=== PATIENT | female | born 1990 | race Caucasian/White ===

== ENCOUNTER 2024-11-21 11:02 | Emergency (ER) | payer OTHER, SELFPAY ==
[2024-11-21 11:07] VITALS: BP 170/118
[2024-11-21 11:46] VITALS: BMI 33.5
--- NOTE | 2024-11-21 11:46 | ED.GENMED ---
History of Present Illness
General
Chief Complaint: Abdominal Symptoms
Source: patient
Time Seen by Provider: 11/21/24 11:30
History of Present Illness
History of Present Illness:
33-year-old female with past medical history of melanoma (currently not undergoing any treatments) presenting to the emergency department for evaluation of nausea and vomiting that started this past Thursday after she initiated a GLP-1 medication
which she had been using for weight loss, accidentally took more units than she should have, today noticed yellowing of the sclera and worsening pain across her upper abdomen radiating into her right upper back/scapular area. Patient states that
the pain is tolerable but she has been unable to tolerate much other than intermittent sips of water. Denies any fevers, chills, rigors. Denies any history of similar. No other concerns at present time. Patient reports she just finished her
menstrual period yesterday. Social history otherwise noncontributory.
Past History
Past History
ED Past Medical History: Cancer
ED Past Surgical History:
Social History
Tobacco: Non-smoker
Alcohol: Occasional
Drug: None
Personal:
Living: with family
Review of Systems
Review of Systems
All Other Systems: ROS reviewed and negative except as documented in HPI and ROS
Phy Exam
Physical Exam
Physical Exam:
GENERAL: Alert , in no apparent distress
EYE: Mildly icteric sclera on the anterior portion of the sclera
HEAD: NCAT
ENT: o/p clr, mmm.
CARDIAC: Regular rate and rhythm, no murmur.
LUNGS: Clear breath sounds bilaterally, no acute respiratory distress, no wheezes/rales/rhonchi
ABDOMEN: Soft, upper abdominal tenderness worse within the epigastrium and right upper quadrant but a negative Lane sign, no distention
NEUROLOGICAL: Alert and oriented
SKIN: Warm and dry, skin intact.
MUSCULOSKELETAL: No edema, well perfused.
PSYCH: Normal and appropriate interaction.
Scores
Heart Failure Risk
Heart Failure Risk Score: Not Applicable
Heart Score for Chest Pain Patients
STEMI patient?: Not applicable
Withdrawal Assessment of Alcohol
Withdrawal Assessment Completed?: Not applicable
Course
Orders/Labs/Results
Orders:
Orders
11/21/24 11:36
0.9% Sodium Chloride 1000 ml [Nss] 1,000 ml IV BOLUS
Ondansetron Injectable [Zofran] 4 mg IV NOW STA
US Abdomen Complete/Upper Urgent
Comment:
Reason For Exam: N/V, upper abd pain, icteric sclera
11/21/24 11:37
Test Result ONCE
11/21/24 11:47
Complete Blood Count/With Diff Urgent
Comprehensive Metabolic Panel Urgent
HCG, Serum Qualitative Screen Urgent
Lipase Urgent
PTT Urgent
Prothrombin Time Urgent
11/21/24 12:51
Urinalysis Reflex To Culture Urgent
Date Specimen was Collected: 11/21/24
Time Specimen was Collected: 12:49
Urine Microscopic Reflex Cult Urgent
Abnormal Lab Results
11/21/24 11/21/24
11:47 12:51
Hgb 7.4 L g/dL
(12.0-16.0)
Hct 27.2 L %
(37.0-47.0)
MCV 60.7 L fL
(81.0-99.0)
MCH 16.5 L pg
(27.0-31.0)
MCHC 27.2 L g/dL
(33.0-37.0)
RDW 20.9 H %
(11.5-14.5)
PT 15.2 H Sec
(11.4-14.6)
Creatinine 0.5 L mg/dL
(0.6-1.0)
Lipase 375 H U/L
(23-300)
Urine Ketones 3+ A
(Negative)
Ur Occult Blood Reflex 1+ A
(Negative)
Urine RBC 3-6 A /HPF
(0-2)
Urine Bacteria (Reflex) Few A
(Negative)
11/21/24 11:47
11/21/24 11:47
Vital Signs
Initial and Last Documented VS:
Initial Vital Signs
Temp Pulse Resp BP Pulse Ox
98.4 F 97 20 170/118 100
11/21/24 11:07 11/21/24 11:07 11/21/24 11:07 11/21/24 11:07 11/21/24 11:07
Last Documented Vital Signs
Temp Pulse Resp BP Pulse Ox
98.4 F 72 18 124/71 99
11/21/24 11:07 11/21/24 14:44 11/21/24 14:44 11/21/24 14:44 11/21/24 14:44
MDM/Problems Addressed
Differential Diagnosis Includes:
Complications from GLP-1, pancreatitis, cholecystitis/choledocholithiasis/symptomatic cholelithiasis, colitis, appendicitis
MDM/Problems Addressed:
33-year-old female presenting to the ER for evaluation of nausea and vomiting since Thursday after starting a GLP-1 medication that same day. Patient states she accidentally took a little bit too much of the medication as part of her first dose.
She does have tenderness within the right upper quadrant that radiates to her right upper back, question pancreatitis versus cholecystitis/choledocholithiasis. She does have mild icteric sclera. Will check labs as well as ultrasound of the
gallbladder. Patient declining anything for pain. Will order Zofran and fluids. Disposition pending.
*Radiology
Radiology exam reviewed: radiology read reviewed
*Pulse Oximetry
Patient hypoxic: no
*Critical Care Note
Total Time (30-74mins, 75-104mins- exclusive of procedures): Not Applicable
Comment
Comment:
Patient's labs show a hemoglobin of 7.4. No record of previous labs here although I suspect this is likely related to patient's recent menstrual period lipase also mildly elevated at 375. This is likely due to patient's recent use of the GLP-1
medication. She notes relief with Zofran. Still with mild abdominal pain as well as reporting a very mild headache. Continues to decline anything for pain. Awaiting ultrasound report.
Patient Management
Escalation/DeEscalation of care consider admission/obs:
Patient advised on all lab findings. Ultrasound does show a small gallstone within the gallbladder but no evidence of cholecystitis. Given the duration of patient's symptoms combined with normal LFTs I doubt cholecystitis, choledocholithiasis or
symptomatic cholelithiasis. I suspect patient's symptoms are all driven by the initiation of her GLP-1 medication. Advised brat/liquid diet. Prescription for Zofran sent to pharmacy. I encourage patient follow-up closely for repeat hemoglobin
given her anemia of 7.4. Patient aware of return precautions to the ER.
ED Attending Note
-
Portions of this chart may have been created with voice recognition software.� Occasional wrong word or��sound alike� substitutions may have occurred due to the inherent limitations of voice recognition software.
Discharge Plan
Departure
Patient Disposition: Home (Routine Discharge)
Date of Disposition: 11/21/24
Time of Disposition: 14:29
Patient with high blood pressure during this ER visit?: No
Discharge Problem:
Abdominal pain, Nausea and vomiting, Anemia
Instructions: Nausea and Vomiting, Adult (DC)
Prescriptions:
New
ondansetron 4 mg tablet,disintegrating
4 mg PO TIDPRN PRN (Reason: nausea/vomiting) Qty: 10 0RF
Referrals:
NONE,* [Family Provider] -
Interventions
Interventions:
*Risk Screen - Suicide Last Done: 11/21/24 11:07
*General Assessment Last Done: 11/21/24 11:07
*Neglect/Abuse Screening Last Done: 11/21/24 11:10
*ED- Fall Risk Assessment Last Done: 11/21/24 12:16
*ED COVID-19 Vaccine History Last Done: 11/21/24 12:16
*Nursing Disposition Last Done: 11/21/24 14:44
RL-Uafbuq-Wcfdhfjyhi Assessment Last Done: 11/21/24 14:28
Discharge Date and Time
Discharge Date/Time: 11/21/24 14:45
Print Language: ARGENTINE
[2024-11-21] MEDS: ZOFRAN 4 MG IV (11:48)
[2024-11-21] MEDS: NSS 1000 IV (11:48)
[2024-11-21 12:03] VITALS: BP 120/91
[2024-11-21 12:19] LABS: Hematocrit 27.2 % (37.0-47.0); Hemoglobin 7.4 g/dL (12.0-16.0); Mean Corp Hgb Conc. 27.2 g/dL (33.0-37.0); Mean Corpuscular Hgb 16.5 pg (27.0-31.0); Mean Corpuscular Volume 60.7 fL (81.0-99.0); Mean Platelet Volume 9.4 fL (7.4-10.4); Platelet Count 292 10^3/uL (130-400); Red Blood Cell Count 4.48 10^6/uL (4.20-5.40); Red Cell Dist. Width 20.9 % (11.5-14.5)
[2024-11-21 12:21] LABS: ALT (SGPT) 27 U/L (0-35); AST (SGOT) 19 U/L (14-36); Albumin 4.3 g/dl (3.5-5.0); Alkaline Phosphatase 56 U/L (38-126); Blood Urea Nitrogen 8 mg/dl (7-17); Calcium 9.4 mg/dl (8.4-10.2); Carbon Dioxide 22 mmol/L (22-30); Chloride 104 mmol/L (98-107); Estimated Creatinine Clearance > 125 ml/min; Glucose 83 mg/dl (70-99); Lipase 375 U/L (23-300); Potassium 3.5 mmol/L (3.5-5.1); Sodium 138 mmol/L (135-145); Total Bilirubin 0.9 mg/dl (0.2-1.3); Total Protein 7.2 g/dl (6.3-8.2); eGFR > 60.00
[2024-11-21 12:23] LABS: INR 1.17; PT 15.2 Sec (11.4-14.6)
[2024-11-21 12:24] LABS: APTT 29.5 Sec (23.4-35.0)
[2024-11-21 12:31] LABS: HCG, Serum Qualitative Screen Negative
[2024-11-21 13:02] LABS: Urine Albumin Negative (Neg - Trace); Urine Bilirubin Negative (Negative); Urine Character Clear (Clear); Urine Color Yellow; Urine Glucose Negative (Negative); Urine Ketone 3+ (Negative); Urine Leukocyte Negative (Negative); Urine Nitrite Negative (Negative); Urine Occult Blood 1+ (Negative); Urine Urobilinogen Negative (Neg - 1+)
[2024-11-21 13:23] LABS: Urine Bacteria Few (Negative); Urine White Cell 0-2 /HPF (0-5)
[2024-11-21 13:30] LABS: % Basophils 0.4 % (0-2); % Eosinophils 0.4 % (0-6); % Immature Granulocytes 0.2 % (0-0.5); % Lymphocytes 35.6 % (20.5-51.1); % Monocytes 5.6 % (1.7-9.3); % Neutrophils 57.8 % (42.2-75.2); Absolute Lymphocytes 1.8 10^3/uL (1.2-3.4); Absolute Monocytes 0.3 10^3/uL (0.1-0.6); Absolute Neutrophils 2.9 10^3/uL (1.4-6.5); Nucleated Red Blood Cells % 0 %
[2024-11-21 14:44] VITALS: BP 124/71
== END 2024-11-21 14:45 | disposition home or self-care (01) ==
LOC: EMR 11:02
PROVIDERS: Physician Assistant Medical; EMERGENCY PHYSICIAN Emergency Medicine
DX: R10.10 Upper abdominal pain, unspecified (principal); R11.2 Nausea with vomiting, unspecified; D64.9 Anemia, unspecified; Z85.820 Personal history of malignant melanoma of skin
CPT/HCPCS: 99284; 96374; 96361; 76700; 80053; 81003; 81015; 83690; 84703; 85025; 85610; 85730

== ENCOUNTER 2024-11-25 22:48 | Inpatient (IN) | payer OTHER, SELFPAY ==
[2024-11-25 14:13] VITALS: BP 143/90
[2024-11-25 14:42] LABS: Hemoglobin 7.8 g/dL (12.0-16.0); Mean Corp Hgb Conc. 26.9 g/dL (33.0-37.0); Mean Corpuscular Hgb 16.3 pg (27.0-31.0); Mean Corpuscular Volume 60.5 fL (81.0-99.0); Mean Platelet Volume 9.3 fL (7.4-10.4); Platelet Count 321 10^3/uL (130-400); Red Blood Cell Count 4.79 10^6/uL (4.20-5.40); Red Cell Dist. Width 20.8 % (11.5-14.5); White Blood Cell Count 6.2 10^3/uL (4.8-10.8)
[2024-11-25 14:47] LABS: HCG, Serum Qualitative Screen Negative
[2024-11-25 14:51] LABS: ALT (SGPT) 22 U/L (0-35); AST (SGOT) 19 U/L (14-36); Albumin 4.4 g/dl (3.5-5.0); Alkaline Phosphatase 48 U/L (38-126); Blood Urea Nitrogen 4 mg/dl (7-17); Calcium 9.7 mg/dl (8.4-10.2); Carbon Dioxide 24 mmol/L (22-30); Chloride 104 mmol/L (98-107); Glucose 86 mg/dl (70-99); Lipase 753 U/L (23-300); Sodium 140 mmol/L (135-145); Total Protein 7.2 g/dl (6.3-8.2); eGFR > 60.00
[2024-11-25 15:15] LABS: % Basophils 0.5 % (0-2); % Eosinophils 0.6 % (0-6); % Immature Granulocytes 0.2 % (0-0.5); % Lymphocytes 29.9 % (20.5-51.1); % Monocytes 5.3 % (1.7-9.3); % Neutrophils 63.5 % (42.2-75.2); Absolute Lymphocytes 1.9 10^3/uL (1.2-3.4); Absolute Monocytes 0.3 10^3/uL (0.1-0.6); Nucleated Red Blood Cells % 0 %
[2024-11-25 17:22] VITALS: BMI 32.7
[2024-11-25 17:23] VITALS: BP 138/89
[2024-11-25 18:00] VITALS: BP 135/100
--- NOTE | 2024-11-25 18:19 | ED.GENMED ---
History of Present Illness
General
Chief Complaint: Abdominal Pain
Source: patient
Exam Limitations: none
Time Seen by Provider: 11/25/24 17:32
History of Present Illness
History of Present Illness:
33yoF with a prior history of melanoma presenting for evaluation of abdominal pain. Patient took a higher dose of semaglutide about 10 days ago. She was supposed to take 10 units but accidentally took 70 units. She started to have nausea and
vomiting 2 days later. She also developed abdominal pain. Pain was initially present in her lower abdomen. She was seen in the ED 4 days ago for the same. Lipase was mildly elevated and cholelithiasis was seen on ultrasound. Patient was
ultimately discharged. She reports continued pain since discharge. Pain is now radiating upwards to the right upper quadrant, back, and up to the shoulder. Pain is worse with eating and she has not eaten anything in the past 2 days. She is able
to drink fluids. She reports nausea but denies any further vomiting. She is also having some loose stools. No fevers, chest pain, shortness of breath. Previous abdominal surgeries include section x 3.
Past History
Past History
ED Past Medical History: Cancer
ED Past Surgical History:
Social History
Tobacco: Non-smoker
Alcohol: Occasional
Drug: None
Personal:
Living: with family
Phy Exam
General Physical Exam
General Presentation: well appearing and no apparent distress
General age: appears stated age
General Skin: warm and dry
General Habitus: normal
General Mental: alert
ENT Exam
ENT Exam: normocephalic
Cardiovascular Exam
Cardiovascular Exam: regular rate/rhythm and no murmur
Pulmonary Exam
Pulmonary Exam: lungs clear, no respiratory distress, no rales, no crackles and no rhonchi
Gastrointestinal Exam
Gastrointestinal Exam: soft, non distended and other (+Generalized abdominal tenderness. Abdomen soft, non-distended. No rebound or guarding.)
Neurological Exam
Neurological Exam: alert
[place] Coma Scale
Eye Opening: Spontaneous
Verbal Response: Oriented
Motor Response: Obeys Commands
GCS Total Score: 15
Musculoskeletal Exam
Musculoskeletal Exam: full ROM and neck pain
Psychiatric Exam
Psychiatric Exam: anxious
Course
Orders/Labs/Results
Orders:
Orders
11/25/24 14:24
Test Result ONCE
11/25/24 14:30
Complete Blood Count/With Diff Urgent
Comprehensive Metabolic Panel Urgent
Ferritin Urgent
Comment: ADD ON
Folate Urgent
Comment: ADD ON
HCG, Serum Qualitative Screen Urgent
Iron Urgent
Comment: ADD ON
Lipase Urgent
Total Iron Binding Urgent
Comment: ADD ON
11/25/24 18:00
CT Abd/pelvis W Iv Cont Urgent
Comment:
Reason For Exam: lower abd pain, RUQ, elevated lipase
11/25/24 18:09
0.9% Sodium Chloride 1000 ml [Nss] 1,000 ml IV BOLUS
HYDROmorphone [Dilaudid] 0.5 mg IV NOW STA
Ondansetron Injectable [Zofran] 4 mg IV NOW STA
11/25/24 20:02
HYDROmorphone [Dilaudid] 0.5 mg IV NOW STA
11/25/24 21:49
Add On- LAB Urgent
Tests Added?: iron, tibc, ferritin, folate
11/25/24 22:36
Admit/Transfer Patient As Directed
Co-Sign Provider:
Level of Care: Inpatient admission
Assign to:: Medical/Surgical
Physician / Group: alyssa quezada
Diagnosis: Acute pancreatitis secondary to accidental overdose Ozempic
Reason for Hospitalization: Acute pancreatitis secondary to accidental overdose Ozempic
Expected length of stay greater than two midnights?: Yes
ELOS- Estimated Length of Stay in days: 3
I certify the patient meets the requirements for IP care: Yes
Code Status As Directed
Resuscitation Status: Full Code
11/25/24 22:41
PRN Pain Medication Management As Directed
May give lesser potent ordered pain med per pt: Yes
preference::
Protocol:: Medication orders for pain may be administered in a
manner that supports deferring to patient preference
when the pt is:
- Requesting an ordered lesser potent pain medication.
Least to most potent pain medications are defined
as: acetaminophen < NSAID < tramadol < opioids
(morphine, oxycodone, hydromorphone).
- Requesting a lesser dose of the same medication IF
ORDERED.
- Requesting a less intrusive route of administration
if both routes are prescribed by the provider (PO <
IV).
Abnormal Lab Results
11/25/24
14:30
Hgb 7.8 L g/dL
(12.0-16.0)
Hct 29.0 L %
(37.0-47.0)
MCV 60.5 L fL
(81.0-99.0)
MCH 16.3 L pg
(27.0-31.0)
MCHC 26.9 L g/dL
(33.0-37.0)
RDW 20.8 H %
(11.5-14.5)
BUN 4 L mg/dl
(7-17)
Creatinine 0.5 L mg/dL
(0.6-1.0)
Iron 27 L ug/dl
(37-170)
% Saturation 6 L %
(20-50)
Lipase 753 H U/L
(23-300)
11/25/24 14:30
11/25/24 14:30
Vital Signs
Initial and Last Documented VS:
Initial Vital Signs
Temp Pulse Resp BP Pulse Ox
98.9 F 90 18 143/90 98
11/25/24 14:13 11/25/24 14:13 11/25/24 14:13 11/25/24 14:13 11/25/24 14:13
Last Documented Vital Signs
Temp Pulse Resp BP Pulse Ox
98.9 F 90 18 138/89 100
11/25/24 14:13 11/25/24 14:13 11/25/24 14:13 11/25/24 17:23 11/25/24 17:24
MDM/Problems Addressed
Differential Diagnosis Includes:
33yoF here with ongoing abd pain and pain with eating. Started a few days after taking excess semaglutide dose. Seen in ED 4 days ago for the same. VSS. Patient is nontoxic-appearing. There is no signs of peritonitis on abdominal exam.
Differential diagnosis includes but is not limited to: Biliary colic, cholecystitis, pancreatitis, gastritis, PUD, side effect of semaglutide, nonspecific abdominal pain
Initial ED plan: Abdominal labs obtained in triage. Lipase is 753 which has increased from prior ED visit. LFTs including bilirubin are normal. Hemoglobin 7.8 which appears improved compared to earlier this week. Patient does report a known
history of anemia and has been told in the past that she was 'close to a blood transfusion' although does not take any iron supplementation and has never been told the etiology of her anemia. Will check CT abdomen. IV Dilaudid, Zofran, and fluid
bolus for symptoms.
*Critical Care Note
Total Time (30-74mins, 75-104mins- exclusive of procedures): Not Applicable
Update Note
Update Note:
CT abdomen is negative for acute findings. There is no imaging evidence of pancreatitis. Lipase is less than 3x upper limit of normal so she does not fully meet diagnostic criteria for pancreatitis. Patient tearful on reassessment and states she
does not feel comfortable going home. Second dose of Dilaudid ordered and patient admitted for further management.
ED Attending Note
-
Portions of this chart may have been created with voice recognition software.� Occasional wrong word or��sound alike� substitutions may have occurred due to the inherent limitations of voice recognition software.
Discharge Plan
Departure
Patient Disposition: Admit
Date of Disposition: 11/25/24
Time of Disposition: 20:25
Presentation/result/management discussed w/ accepting MD/DO: Hospitalist
Discharge Problem:
Intractable abdominal pain, Elevated lipase, Anemia
Interventions
Interventions:
*Risk Screen - Suicide Last Done: 11/25/24 14:13
*General Assessment Last Done: 11/25/24 14:13
*Neglect/Abuse Screening Last Done: 11/25/24 14:13
*ED COVID-19 Vaccine History Last Done: 11/25/24 14:13
LC-Hijcqg-Miyipfavys Assessment Last Done: 11/25/24 17:24
[2024-11-25] MEDS: ZOFRAN 4 MG IV (18:24)
[2024-11-25] MEDS: NSS 1000 IV (18:24)
[2024-11-25] MEDS: DILAUDID 0.5 MG IV ×2 (18:26→20:23)
--- NOTE | 2024-11-25 21:49 | HPS.HSE ---
Addendum entered and electronically signed by Tian Steve DO 11/25/24 23:18:
Patient seen and examined independently. Agree with findings and plan as set forth by DARIO Griffin.
Patient is a 33y F with PMH significant for melanoma who presents to ED complaining of abdominal pain with N/V. Patient states that she took too much compounded semaglutide on her initial dose about 10 days ago (took 10cc instead of 10'units').
About 24 hours later she developed crampy abdominal pain, poor appetite and N/V. She contacted [facility] control following the accidental overdose and was told to monitor her ability to take in fluids - but no other specific measures. She has
continued with N/V and crampy abdominal pain since that time. Having difficulty tolerating PO intake - even fluids. Patient was seen in the ED here on 11/21 with similar symptoms. She returns today with ongoing symptoms / no relief.
Ass:
Unintentional Overdose of Semaglutide
Drug Induced Pancreatitis
Microcytic Anemia
Obesity due to excess calories
Plan:
Admit for further evaluation and treatment.
IVFs, pain control, antiemetics, etc.
PO fluids as tolerated.
Follow for clinical improvement / normalization of lipase.
Anemia evaluation including iron studies, etc.
? thalassemia trait given significant microcytosis.
No gross blood losses, heavy menses, etc per patient.
Original Note:
Family Physician
-
Family Physician: * NONE
Chief Complaint
-
Generalized abdominal pain nausea, vomiting
History of Present Illness
33-year-old female with prior history of melanoma is complaining of abdominal pain she reports she took a higher dose of semaglutide about 10 days ago was supposed to take 10 units but actually took 70 units she started to have nausea and vomiting 2
days later then developed abdominal pain. She was seen in the ER 4 days ago for the same symptoms during that time she had mildly elevated lipase and cholelithiasis seen on ultrasound. She reports the pain is continued since discharge is radiating
up towards her right upper quadrant back and up to her shoulder. The pain is worse with eating and she has not eaten anything in the past 2 days however she is able to hold down fluids. She also reports some loose stools. She has lost 11 pounds
in the past week. She was advised her hemoglobin was 7.8 and discussion she did tell me that she was diagnosed with iron deficiency anemia about 5 years ago in an ER however she did not seek any treatment for this. Her last menses was 2 weeks ago
she typically has a 6-day. That is not heavy with no clots she has had no recent black stool nosebleeds. She denies fever, chills, chest pain, palpitations, cough, shortness of breath, urinary symptoms. History of iron deficiency anemia diagnosed
5 years ago not treated, section x 3, tubal ligation.
Medical History
Past Medical History
Past Medical History: Reports Other
Additional Past Medical History:
Class I obesity�BMI 32.6
Iron deficiency anemia Dx 5 years ago untreated
Melanoma left posterior shoulder blade removal age 12
melanoma left mid back and left side neck removal age [age]
Past Surgical History: Reports Other
Additional Past Surgical History:
section x 3
Social History
Tobacco: Non-smoker
Alcohol: None
Drug: None
Personal:
Living: With Family
Employment: Employed
Family History
Family History: Other (Patient adopted knows her father is [place] from [facility])
Allergies / Home Medications
Allergies reflects when Allergies were last updated in [facility].
Home Medications with original date entered in [facility]
Allergy/Medication List:
Allergies
Allergy/AdvReac Type Severity Reaction Status Date / Time
No Known Allergies Allergy Verified 11/25/24 14:25
Home Medications
No Meds [No Current Medications] 11/25/24
Review of Systems
-
History Source: Patient
A 12 point ROS was completed and negative except as noted: Yes
Constitutional: Reports Weight Loss (11 pounds in the past week) and Fatigue; Denies Fever or Chills
EENT: Denies Sore Throat or Runny Nose
Respiratory: Denies Cough or Trouble Breathing
Cardiac: Denies Chest Pain, Palpitations or Syncope
Abdomen/GI: Reports Abdominal Pain (Generalized abdomen through to back), Nausea and Vomiting; Denies Diarrhea or Constipated
: Denies Dysuria, Frequency, Flank Pain, Incontinence or Difficulty Voiding
Musculoskeletal: Denies Joint Pain or Edema
Skin: Denies Itching or Rash
Neurological: Denies Dizzy, Headache or Weakness
Endocrine: Reports No Symptoms
Hematologic/Lymphatic: Reports No Symptoms and Other (No heavy menses); Denies Bleeding
Psych: Reports Calm
Physical Exam
Vital Signs
Vital Signs
Temp Pulse Resp BP Pulse Ox
98.9 F 90 18 138/89 100
11/25/24 14:13 11/25/24 14:13 11/25/24 14:13 11/25/24 17:23 11/25/24 17:24
Physical Exam
General: Conversant, Pain and Obese; No Fever or Chills
HEENT: NormoCephalic, Anicteric, Moist mucous membranes, PERRLA, [place] Conjunctivae and No Ptosis
Respiratory: Clear; No Wheezes, Rales or Rhonchi
Cardiac: S1/S2 and Regular Rhythm; No Murmur, Rub, Gallop or Peripheral Edema
Breast: Deferred by me
GI: Soft, Non Distended, Normal Bowel Sounds and Tender (Generalized abdomen)
Genito-urinary: Deferred by me
Musculoskeletal: No Clubbing, No Cyanosis and No Edema
Skin: Warm and Dry; No Rash or Jaundice
Neuro: AO x 3, No Motor Deficits, Nonfocal/grossly intact, Cranial Nerves Intact and No Sensory Deficits; No Slurred Speech, Facial Droop, Tremors or Sedated
Psych: Calm
Laboratory Results
-
11/25/24 14:30
11/25/24 14:30
Laboratory Results
Total Bilirubin 1.0 mg/dl (0.2-1.3) 11/25/24 14:30
AST 19 U/L (14-36) 11/25/24 14:30
ALT 22 U/L (0-35) 11/25/24 14:30
Alkaline Phosphatase 48 U/L (38-126) 11/25/24 14:30
Lipase 753 U/L (23-300) H 11/25/24 14:30
Data Reviewed
-
CT Scan: Report Reviewed by me
Lab Data: Labs Reviewed by me
Impression/Plan
-
Impression/plan:
Admit to MedSurg
#Acute pancreatitis secondary to accidental overdose semaglutide
Lipase 753 > 375 on 11/21/2024
-IV NSS 150 cc/h
-IV Zofran
-IV Dilaudid mild-moderate and severe dosing
- Check lipase in a.m.
- Follow CBC, CMP
#Anemia-microcytic
#History iron deficiency anemia diagnosed 5 years ago untreated
Hgb 7.8 prior 7.4 on 11/21/2024
- Check iron, ferritin, TIBC, B12, folate
- Recommended patient follow-up outpatient with hematology
#Class I obesity�BMI 32.6
Patient attempted weight loss with Ozempic but accidentally overdosed
-Until pancreatitis and abdominal pain resolves no current recommendations for weight loss at this time
DVT prophylaxis
SCDs
Full code
[2024-11-25 22:22] LABS: Iron 27 ug/dl (37-170)
[2024-11-25 22:31] LABS: Percent Saturation 6 % (20-50); Total Iron Binding Capacity 424 ug/dl (265-497)
[2024-11-25 23:50] LABS: Ferritin 3.2 ng/ml (6.24-137)
[2024-11-26] VITALS (7 sets, daily range): BP systolic 117–138; BP diastolic 67–71; BMI 32.8; BMI 33.0
[2024-11-26 00:21] LABS: Folate 10.8 ng/ml (2.76-20)
[2024-11-26] MEDS: NSS 1000 IV ×4 (03:39→22:56)
[2024-11-26] MEDS: DILAUDID 0.5 MG IV ×5 (03:39→22:38)
--- NOTE | 2024-11-26 04:07 | PTCARENOTE ---
Pt received as an ED hold. Transferred into hospital bed. AAOx3, pleasant. Admission and assessment completed (refer to worklist). Plan of care discussed. Reports 8 abdominal pain, medicated w/PRN dilaudid (refer to MAR). Completed oral
hygiene, voided in BR. #20 RAC PIV w/NSS at 150 mL/hr. Call ervin w/in reach. Safe environment maintained.
[2024-11-26 08:07] LABS: % Basophils 0.5 % (0-2); % Eosinophils 0.9 % (0-6); % Lymphocytes 40.8 % (20.5-51.1); % Monocytes 6.7 % (1.7-9.3); % Neutrophils 51.1 % (42.2-75.2); Absolute Lymphocytes 1.8 10^3/uL (1.2-3.4); Absolute Monocytes 0.3 10^3/uL (0.1-0.6); Absolute Neutrophils 2.2 10^3/uL (1.4-6.5); Hematocrit 24.4 % (37.0-47.0); Hemoglobin 6.6 g/dL (12.0-16.0); Mean Corp Hgb Conc. 26.2 g/dL (33.0-37.0); Mean Corpuscular Volume 61.2 fL (81.0-99.0); Mean Platelet Volume 10.1 fL (7.4-10.4); Nucleated Red Blood Cells % 0 %; Platelet Count 267 10^3/uL (130-400); Red Blood Cell Count 3.99 10^6/uL (4.20-5.40); Red Cell Dist. Width 20.1 % (11.5-14.5); White Blood Cell Count 4.3 10^3/uL (4.8-10.8)
[2024-11-26 08:10] LABS: ALT (SGPT) 17 U/L (0-35); AST (SGOT) 15 U/L (14-36); Albumin 3.5 g/dl (3.5-5.0); Alkaline Phosphatase 44 U/L (38-126); Blood Urea Nitrogen 5 mg/dl (7-17); Calcium 8.7 mg/dl (8.4-10.2); Carbon Dioxide 24 mmol/L (22-30); Chloride 108 mmol/L (98-107); Estimated Creatinine Clearance > 125 ml/min; Glucose 73 mg/dl (70-99); Lipase 597 U/L (23-300); Potassium 3.7 mmol/L (3.5-5.1); Sodium 142 mmol/L (135-145); Total Bilirubin 0.9 mg/dl (0.2-1.3); eGFR > 60.00
--- NOTE | 2024-11-26 09:35 | W.PN.HOSP.TC ---
Today's Communication/Plan
-
see plan
Assessment / Plan
Assessment / Plan
Gen: NAD, AAOx3.
Eyes: EOMI, PERRLA, no scleral icterus.
Neck: supple.
CV: RRR, +S1/S2, no m/r/g.
Resp: CTAB, no rales, wheezes, or rhonchi.
Abd: +BS, soft, NT, ND
Skin: No rashes.
Neuro: CN 2-12 intact, non-focal.
Psych: Normal mood and affect.
CT A/P:
1. No significant acute abnormality identified in the abdomen or pelvis, as described above.
2. Mild splenomegaly.
Drug Induced Pancreatitis due to unintentional Overdose of Semaglutide:
-lipase improving
-cont NS @ 150cc/hr
-IV dilaudid for pain control
Iron deficiency anemia anemia:
-drop in hemoglobin is dilutional. No evidence of bleeding at this time.
-start IV Fe
-transfuse 1U pRBCs
Obesity due to excess calories
FULL/SCDs
Anticipated Discharge: 24 - 48 hours
Subjective/Interval History
-
Date of Service: November 26, 2024
No new complaints.
Objective Data
-
Labs:
Laboratory Results
11/26/24
05:45
WBC 4.3 L
Hgb 6.6 L*
Hct 24.4 L
Plt Count 267
Sodium 142
Potassium 3.7
Chloride 108 H
Carbon Dioxide 24
BUN 5 L
Creatinine 0.5 L
Glucose 73
Calcium 8.7
Total Bilirubin 0.9
AST 15
ALT 17
Alkaline Phosphatase 44
Vital Signs:
Vital Signs
Temp Pulse Resp BP Pulse Ox
97.9 F 90 18 120/71 99
11/26/24 04:02 11/25/24 14:13 11/25/24 14:13 11/26/24 03:00 11/25/24 18:29
I&O
11/25/24 11/26/24 11/27/24
06:59 06:59 06:59
Intake Total 570 / 570
Balance 570 / 570
[2024-11-26] MEDS: ZOFRAN 4 MG IV ×2 (12:06→18:26)
[2024-11-26] MEDS: FERRLECIT 110 MG IV (16:31)
[2024-11-27] MEDS: ZOFRAN 4 MG IV ×2 (04:48→17:16)
[2024-11-27] MEDS: DILAUDID 0.5 MG IV ×4 (04:48→17:16)
[2024-11-27] MEDS: NSS 1000 IV ×3 (04:48→22:59)
[2024-11-27 04:58] LABS: % Basophils 0.4 % (0-2); % Eosinophils 1.2 % (0-6); % Immature Granulocytes 0.4 % (0-0.5); % Monocytes 5.2 % (1.7-9.3); % Neutrophils 60.8 % (42.2-75.2); Absolute Eosinophils 0.1 10^3/uL (0-0.7); Absolute Lymphocytes 1.7 10^3/uL (1.2-3.4); Absolute Monocytes 0.3 10^3/uL (0.1-0.6); Absolute Neutrophils 3.1 10^3/uL (1.4-6.5); Hematocrit 27.7 % (37.0-47.0); Hemoglobin 7.5 g/dL (12.0-16.0); Mean Corp Hgb Conc. 27.1 g/dL (33.0-37.0); Mean Corpuscular Hgb 17.3 pg (27.0-31.0); Mean Corpuscular Volume 63.8 fL (81.0-99.0); Mean Platelet Volume 9.6 fL (7.4-10.4); Nucleated Red Blood Cells % 0 %; Platelet Count 262 10^3/uL (130-400); Red Blood Cell Count 4.34 10^6/uL (4.20-5.40); White Blood Cell Count 5.2 10^3/uL (4.8-10.8)
[2024-11-27 05:20] VITALS: BMI 33.1
[2024-11-27 05:25] LABS: ALT (SGPT) 15 U/L (0-35); AST (SGOT) 18 U/L (14-36); Albumin 3.6 g/dl (3.5-5.0); Alkaline Phosphatase 42 U/L (38-126); Blood Urea Nitrogen < 2 mg/dl (7-17); Calcium 8.7 mg/dl (8.4-10.2); Carbon Dioxide 23 mmol/L (22-30); Chloride 110 mmol/L (98-107); Estimated Creatinine Clearance > 125 ml/min; Glucose 66 mg/dl (70-99); Lipase 500 U/L (23-300); Potassium 3.7 mmol/L (3.5-5.1); Sodium 142 mmol/L (135-145); Total Bilirubin 1.1 mg/dl (0.2-1.3); Total Protein 6.1 g/dl (6.3-8.2); eGFR > 60.00
[2024-11-27 07:38] VITALS: BP 120/71
--- NOTE | 2024-11-27 08:36 | W.PN.HOSP.TC ---
Today's Communication/Plan
-
see plan
Assessment / Plan
Assessment / Plan
Gen: NAD, AAOx3.
Eyes: EOMI, PERRLA, no scleral icterus.
Neck: supple.
CV: remains RRR, +S1/S2, no m/r/g.
Resp: CTAB anteriorly, no rales, wheezes, or rhonchi.
Abd: +BS, soft, epigastric TTP, ND
Skin: No rashes.
Neuro: CN 2-12 intact, non-focal.
Psych: Normal mood and affect.
CT A/P:
1. No significant acute abnormality identified in the abdomen or pelvis, as described above.
2. Mild splenomegaly.
Drug Induced Pancreatitis due to unintentional Overdose of Semaglutide:
-lipase improving
-cont NS @ 150cc/hr
-IV dilaudid for pain control
Iron deficiency anemia anemia:
-drop in hemoglobin was dilutional. No evidence of bleeding at this time.
-cont IV Fe
-s/p 1U pRBCs
Obesity due to excess calories
FULL/SCDs
Anticipated Discharge: 24 - 48 hours
Subjective/Interval History
-
Date of Service: November 27, 2024
Abdominal pain slightly better than yesterday.
Objective Data
-
Labs:
Laboratory Results
11/27/24
04:25
WBC 5.2
Hgb 7.5 L
Hct 27.7 L
Plt Count 262
Sodium 142
Potassium 3.7
Chloride 110 H
Carbon Dioxide 23
BUN < 2 L
Creatinine 0.5 L
Glucose 66 L
Calcium 8.7
Total Bilirubin 1.1
AST 18
ALT 15
Alkaline Phosphatase 42
Vital Signs:
Vital Signs
Temp Pulse Resp BP Pulse Ox
97.8 F 67 14 120/71 100
11/27/24 07:38 11/27/24 07:38 11/27/24 07:38 11/27/24 07:38 11/27/24 07:38
I&O
11/26/24 11/27/24 11/28/24
06:59 06:59 06:59
Intake Total 570 / 570 730 / 730
Balance 570 / 570 730 / 730
--- NOTE | 2024-11-27 10:19 | CM ---
CM following re: d/c planning.
CM met with pt at bedside to complete IA.
Pt resides with 3 children, independent with mobility and ADLs.
Pt denies DME.
She states she does not have a PCP right now.
CM offered to provide her a list, but she declines, as she will contact her insurance.
CM suggested she call or visit their website/portal to get in network physicians. She agreed.
She does not anticipate any d/c needs.
Pharmacy is [facility] in [place].
[2024-11-27] MEDS: FERRLECIT 110 MG IV (13:13)
[2024-11-27 16:00] VITALS: BP 132/81
[2024-11-27] MEDS: DILAUDID 1 MG IV (21:57)
[2024-11-27 23:00] VITALS: BP 120/72
[2024-11-28] MEDS: NSS 1000 IV ×3 (05:38→18:13)
[2024-11-28] MEDS: DILAUDID 0.5 MG IV ×3 (05:38→16:40)
[2024-11-28] MEDS: ZOFRAN 4 MG IV ×3 (05:39→22:47)
[2024-11-28 06:00] VITALS: BMI 32.6
[2024-11-28 07:03] LABS: % Basophils 0.5 % (0-2); % Eosinophils 2.3 % (0-6); % Immature Granulocytes 0.4 % (0-0.5); % Lymphocytes 29.8 % (20.5-51.1); % Monocytes 5.1 % (1.7-9.3); % Neutrophils 61.9 % (42.2-75.2); Absolute Eosinophils 0.1 10^3/uL (0-0.7); Absolute Lymphocytes 1.7 10^3/uL (1.2-3.4); Absolute Monocytes 0.3 10^3/uL (0.1-0.6); Absolute Neutrophils 3.4 10^3/uL (1.4-6.5); Hematocrit 29.3 % (37.0-47.0); Mean Corp Hgb Conc. 27.3 g/dL (33.0-37.0); Mean Corpuscular Hgb 17.4 pg (27.0-31.0); Mean Corpuscular Volume 63.8 fL (81.0-99.0); Mean Platelet Volume 9.5 fL (7.4-10.4); Nucleated Red Blood Cells % 0 %; Platelet Count 279 10^3/uL (130-400); Red Blood Cell Count 4.59 10^6/uL (4.20-5.40); Red Cell Dist. Width 22.5 % (11.5-14.5); White Blood Cell Count 5.5 10^3/uL (4.8-10.8)
[2024-11-28 07:21] LABS: ALT (SGPT) 15 U/L (0-35); AST (SGOT) 16 U/L (14-36); Albumin 3.9 g/dl (3.5-5.0); Alkaline Phosphatase 48 U/L (38-126); Blood Urea Nitrogen < 2 mg/dl (7-17); Carbon Dioxide 16 mmol/L (22-30); Chloride 112 mmol/L (98-107); Estimated Creatinine Clearance > 125 ml/min; Glucose 61 mg/dl (70-99); Potassium 3.6 mmol/L (3.5-5.1); Sodium 142 mmol/L (135-145); Total Protein 6.5 g/dl (6.3-8.2); eGFR > 60.00
[2024-11-28 07:42] VITALS: BP 128/73
--- NOTE | 2024-11-28 07:53 | W.PN.HOSP.TC ---
Today's Communication/Plan
-
see plan
Assessment / Plan
Assessment / Plan
Pt seen and examined with BASIA Fishman present at bedside:
Gen: NAD, AAOx3.
Eyes: EOMI, PERRLA, no scleral icterus.
Neck: supple.
CV: continues to remain RRR, +S1/S2, no m/r/g.
Resp: CTAB anteriorly, no rales, wheezes, or rhonchi.
Abd: +BS, soft, epigastric and RUQ TTP, ND
Skin: No rashes.
Neuro: CN 2-12 intact, non-focal.
Psych: Normal mood and affect.
CT A/P:
1. No significant acute abnormality identified in the abdomen or pelvis, as described above.
2. Mild splenomegaly.
Drug Induced Pancreatitis due to unintentional Overdose of Semaglutide:
-lipase improved
-cont NS @ 150cc/hr
-IV dilaudid for pain control
-check CT A/P w/IV contrast
-c/s GI
Iron deficiency anemia anemia:
-drop in hemoglobin was dilutional. No evidence of bleeding at this time.
-cont IV Fe
-s/p 1U pRBCs
Obesity due to excess calories
FULL/SCDs
Anticipated Discharge: 24 - 48 hours
Subjective/Interval History
-
Date of Service: November 28, 2024
Still with abdominal pain, not improved from yesterday.
Objective Data
-
Labs:
Laboratory Results
11/28/24
06:31
WBC 5.5
Hgb 8.0 L
Hct 29.3 L
Plt Count 279
Sodium 142
Potassium 3.6
Chloride 112 H
Carbon Dioxide 16 L
BUN < 2 L
Creatinine 0.5 L
Glucose 61 L
Calcium 9.0
Total Bilirubin 1.0
AST 16
ALT 15
Alkaline Phosphatase 48
Vital Signs:
Vital Signs
Temp Pulse Resp BP Pulse Ox
97.8 F 72 17 128/73 96
11/28/24 07:42 11/28/24 07:42 11/28/24 07:42 11/28/24 07:42 11/28/24 07:42
I&O
11/27/24 11/28/24 11/29/24
06:59 06:59 06:59
Intake Total 730 / 730 840 / 840
Balance 730 / 730 840 / 840
[2024-11-28] MEDS: DILAUDID 1 MG IV ×2 (08:47→13:37)
[2024-11-28 09:34] LABS: Acanthocytes Slight; Anisocytosis 2+; Hypochromasia 2+; Normal RBC Morphology No; Ovalocytes 1+; Poikilocytosis Slight; Polychromasia 1+
--- NOTE | 2024-11-28 09:50 | CON.GI ---
Addendum entered and electronically signed by Terrie Pitts DO 11/28/24 17:33:
The patient was seen and examined by me independently in collaboration with the nurse practitioner.
Past medical history/social history/medications/allergies/family history reviewed.
Lab data and imaging data reviewed.
Sonya is a 33-year-old female with past medical history of melanoma status post resection, iron deficiency anemia without prior workup, and recent initiation of semaglutide about 10 days ago who presents with acute onset nausea, vomiting and
abdominal pain with concern for acute pancreatitis. She admits to taking the wrong dose of semaglutide, took 70 units instead of the prescribed 10 which is what triggered her symptoms. Lipase was found to be elevated on admission to 753, it is
improved to 500.
-Abdominal ultrasound 11/21/2024: 1 cm stone in the gallbladder, no evidence of gallbladder wall thickening, pericholecystic fluid or biliary ductal dilatation.
-CT abdomen and pelvis with IV contrast 11/25/2024: Splenomegaly. Focal fatty infiltration of the liver. Pancreas appears normal. Gallbladder is without calcified stones.
Patient has been treated with supportive care for presumed acute pancreatitis with minimal improvement. Patient's lipase is actually less than 3 times upper limit of normal and her pancreas appears normal on imaging, so therefore she only meets 1
out of the 3 criteria, and does not have a diagnosis of acute pancreatitis. Suspect majority of the symptoms are 2/2 the medication/overdose of the medication.
Additionally, has significant microcytic anemia, MCV in the 60s, suspicious for thalassemia.Hgb down to 6.6, improved to 8.0 after transfusion today. Reports history of WALESKA without prior workup.
A/P:
-MRI/MRCP pending though, anticipate this will be normal
-Will give additional laxatives tonight, I feel underlying stool burden is contributing
-suspect some gastroparetic symptoms, t/c dose of reglan if no improvement with laxatives
-Iron panel c/w WALESKA; recommend outpatient EGD/Colonoscopy and hematology outpatient f/u to r/o hemoglobinopathies
Original Note:
Consultation
-
Date/Time Consultation Requested: 11/28/24929
Date/Time Consultation Performed: 11/28/24949
Requesting Provider: Ector Cuba MD
Performing Provider: DARIO Sykes, Adela Pitts DO
Reason for Consultation: abdominal pain
Medical History
Chief Complaint / HPI
Chief Complaint: abdominal pain, nausea
History of Present Illness:
Pt is a 33yo with hx melanoma with resection , WALESKA (no prior work up but admits to abnormal labs 4 years ago) , , with recent start of Semaglutide about 10 days prior to admission and took wrong dose of 70 units instead of 10 units with
noted nausea, vomiting and abdominal pain. She was in ER and returned with continued symptoms. On admission she is noted with continued iron deficiency anemia with hbg down to 6.6 with MCV in low 60's and iron studies c/w iron deficiency. She
has had normal LFT's but lipase to 753. Asked to see as she remains with continued epigastric, back and lower abdominal pain with difficulty with eating. She recently completed US Abdomen Complete/Upper 11/21/24 There is a calculus in the
gallbladder but no evidence of cholecystitis. Liver normal no duct dilation. Pancreas normal. CT completed 11/25 with
No significant acute abnormality identified in the abdomen or pelvis mild splenomegaly fatty liver, gallbladder without stones pancreas normal.
In review with patient she admits to several symptoms prior to Semaglutide dosing. She admits to chronic shortness of breath and intermittent abdominal pain. She was unsure about post prandial pain but did have some pain at night. Post
injection she has nausea and vomiting with last vomiting last week, initial diarrhea with yellow colored stools then no stools for several days. She denies any hx rectal bleeding. She has menses for about 7 days but denies heavy periods. Has not
seen MACHINE BILLER in 12 years. Denies NSAID use. 12 lbs wt loss since inital dose of Semaglutide.
Past Medical History
Past Medical History: Cancer (melanoma of back ) and Other (obesity, WALESKA)
Past Surgical History:
Social History
Tobacco: Non-Smoker
Alcohol: Occasional
Drug: None
Living: With Family (3 children )
Employment: Employed
Family History
Family History: Other (? grandmother with anemia )
Allergies / Home Medications
Allergy/AdvReac Type Severity Reaction Status Date / Time
No Known Allergies Allergy Verified 11/25/24 14:25
�Medication �Instructions �Recorded
No Meds [No Current Medications] 11/25/24
Review of Systems
-
History Source: Patient
Constitutional: Reports Weight Loss (12 lbs since Semaglutide started 2 + weeks ago )
Respiratory: Reports Trouble Breathing
Cardiac: Reports No Symptoms
Abdomen/GI: Reports Abdominal Pain, Nausea, Diarrhea (initial with medication) and Constipated (last few days)
: Reports No Symptoms
Musculoskeletal: Reports No Symptoms
Skin: Reports No Symptoms
Neurological: Reports Weakness
Endocrine: Reports No Symptoms
Hematologic/Lymphatic: Reports No Symptoms
Vital Signs
Temp Pulse Resp BP Pulse Ox
97.8 F 72 17 128/73 96
11/28/24 07:42 11/28/24 07:42 11/28/24 07:42 11/28/24 07:42 11/28/24 07:42
Physical Exam
Exam
General: Other (pale appearing )
HEENT: Normocephalic and Anicteric
Respiratory: Clear
Cardiac: Regular Rhythm
GI: Soft, Non Distended and Tender (epigastric and some lower abdominal pain)
Musculoskeletal: No Clubbing and No Cyanosis
Skin: Warm and Dry
Neuro: Awake, Alert and AO x 3
Psych: Calm
Results
WBC 5.5 10^3/uL (4.8-10.8) 11/28/24 06:31
Hgb 8.0 g/dL (12.0-16.0) L 11/28/24 06:31
Hct 29.3 % (37.0-47.0) L 11/28/24 06:
MCV 63.8 fL (81.0-99.0) L 11/28/24 06:
Plt Count 279 10^3/uL (130-400) 11/28/24 06:31
Absolute Neuts (auto) 3.4 10^3/uL (1.4-6.5) 11/28/24 06:
Sodium 142 mmol/L (135-145) 11/28/24 06:
Potassium 3.6 mmol/L (3.5-5.1) 11/28/24 06:
Chloride 112 mmol/L (98-107) H 11/28/24 06:31
Carbon Dioxide 16 mmol/L (22-30) L 11/28/24 06:31
BUN < 2 mg/dl (7-17) L 11/28/24 06:
Creatinine 0.5 mg/dL (0.6-1.0) L 11/28/24 06:
Calcium 9.0 mg/dl (8.4-10.2) 11/28/24 06:
Total Bilirubin 1.0 mg/dl (0.2-1.3) 11/28/24 06:31
AST 16 U/L (14-36) 11/28/24 06:31
ALT 15 U/L (0-35) 11/28/24 06:31
Alkaline Phosphatase 48 U/L (38-126) 11/28/24 06:31
Lipase 500 U/L (23-300) H 11/27/24 04:25
Diagnostic Image Results:
US Abdomen Complete/Upper 11/21/24 There is a calculus in the gallbladder but no evidence of cholecystitis. Liver normal no duct dilation. Pancreas normal.
CT A/p completed 11/25 with No significant acute abnormality identified in the abdomen or pelvis mild splenomegaly fatty liver, gallbladder without stones pancreas normal.
Prior GI Procedures:
EGD: none
Colonoscopy: none
Assessment / Plan
-
Pt is a 33yo with hx melanoma with resection , WALESKA (no prior work up but admits to abnormal labs 4 years ago) , , with recent start of Semaglutide about 10 days prior to admission and took wrong dose of 70 units instead of 10 units with
noted nausea, vomiting and abdominal pain. She was in ER and returned with continued symptoms. On admission she is noted with continued iron deficiency anemia with hbg down to 6.6 with MCV in low 60's and iron studies c/w iron deficiency. She
has had normal LFT's but lipase to 753. Asked to see as she remains with continued epigastric, back and lower abdominal pain with difficulty with eating.
US Abdomen Complete/Upper 11/21/24 There is a calculus in the gallbladder but no evidence of cholecystitis. Liver normal no duct dilation. Pancreas normal.
CT s/p completed 11/25 with No significant acute abnormality identified in the abdomen or pelvis mild splenomegaly fatty liver, gallbladder without stones pancreas normal.
-abdominal pain
-recent start of Semaglutide with unintentional overdose
-nausea with prior vomiting
-diarrhea then constipation
-elevated lipase
-US with noted cholelithiasis
-Microcytic iron deficiency anemia with no prior GI work up
other med problems:
-melanoma with prior resection
-hx c-sections
PLAN:etiology of abdominal pain and lipase elevation related to prolonged effects of Semaglutide vs pancreatitis related, constipation (though pain noted when pt was having diarrhea last week) vs other
US and CT as noted
reviewed with Dr. Cuba will proceed with MRI and hold repeat CT as recent CT stable to eval for pancreatitis, stones
trend labs
will add miralax daily
discussed with patient about anemia-- likely chronic issue but symptomatic with shortness of breath -- agree with IV iron, 1 unit PRBC's given, no hx prior bariatric intervention in past. She will need EGD/colon if neg capsule likely outpatient
as would not be able to tolerate prep now-- if work up neg consider heme eval--
cont to trend hbg
updated nursing staff
-
-
Thank you for consultation and allowing me to participate in the patient's care. Please call the construction skills teacher GI physician during the after hours with any questions or concerns.
--- NOTE | 2024-11-28 10:52 | CM ---
Patient seen at bedside
chart reviewed
No PCP-Information given on the Residency program
PLAN: Home, no needs anticipated
drove self, if unable to drive will make alternate transport
[2024-11-28] MEDS: MIRALAX 17 GRAMS PO (11:25)
[2024-11-28] MEDS: FERRLECIT 110 MG IV (13:38)
[2024-11-28 16:00] VITALS: BP 130/80
[2024-11-28] MEDS: DILAUDID 0.25 MG IV ×2 (18:14→22:45)
[2024-11-28] MEDS: SENOKOT 17.2 MG PO (22:44)
[2024-11-28 23:02] VITALS: BP 138/82
[2024-11-29] MEDS: NSS 1000 IV ×2 (01:08→08:34)
[2024-11-29] MEDS: ZOFRAN 4 MG IV ×3 (05:03→18:29)
[2024-11-29] MEDS: DILAUDID 0.5 MG IV ×2 (05:55→14:34)
[2024-11-29 07:25] VITALS: BP 121/68
--- NOTE | 2024-11-29 08:22 | W.PN.HOSP.TC ---
Today's Communication/Plan
-
see plan
Assessment / Plan
Assessment / Plan
Gen: NAD, AAOx3, NCAT
Eyes: EOMI, PERRLA, no scleral icterus.
Neck: supple.
CV: RRR, +S1/S2, no m/r/g.
Resp: remains CTAB anteriorly, no rales, wheezes, or rhonchi.
Abd: +BS, soft, epigastric and RUQ TTP (improved from yesterday), ND
Skin: No rashes.
Neuro: CN 2-12 intact, non-focal.
Psych: Normal mood and affect.
CT A/P:
1. No significant acute abnormality identified in the abdomen or pelvis, as described above.
2. Mild splenomegaly.
Drug Induced Pancreatitis due to unintentional Overdose of Semaglutide:
-lipase improved
-cont NS @ 150cc/hr
-IV dilaudid for pain control
-GI following
-check MRI Abd
Iron deficiency anemia anemia:
-drop in hemoglobin was dilutional. No evidence of bleeding at this time.
-cont IV Fe
-s/p 1U pRBCs
Obesity due to excess calories
FULL/SCDs
Anticipated Discharge: 24 - 48 hours
Subjective/Interval History
-
Date of Service: November 29, 2024
Abdominal pain improving.
Objective Data
-
Vital Signs:
Vital Signs
Temp Pulse Resp BP Pulse Ox
97.8 F 72 16 121/68 100
11/29/24 07:25 11/29/24 07:25 11/29/24 07:25 11/29/24 07:25 11/29/24 07:25
I&O
11/28/24 11/29/24 11/30/24
06:59 06:59 06:59
Intake Total 840 / 840 1480 / 1480
Balance 840 / 840 1480 / 1480
[2024-11-29] MEDS: MIRALAX 17 GRAMS PO (08:32)
[2024-11-29] MEDS: DILAUDID 0.25 MG IV ×2 (08:34→18:29)
[2024-11-29 09:07] LABS: Blood Urea Nitrogen < 2 mg/dl (7-17); Calcium 9.1 mg/dl (8.4-10.2); Carbon Dioxide 15 mmol/L (22-30); Chloride 113 mmol/L (98-107); Estimated Creatinine Clearance > 125 ml/min; Glucose 55 mg/dl (70-99); Sodium 143 mmol/L (135-145); eGFR > 60.00
--- NOTE | 2024-11-29 09:10 | PTCARENOTE ---
made aware of critical blood glucose value.
--- NOTE | 2024-11-29 09:10 | PTCARENOTE ---
Lab informed this RN of critical blood glucose, result= 55. Pt c/o generalized weakness and tired. Hypoglycemic protocol initiated.
[2024-11-29 09:26] LABS: Glucose - Point of Care 49 mg/dl (70-99)
[2024-11-29 09:44] LABS: Glucose - Point of Care 56 mg/dl (70-99)
[2024-11-29] MEDS: DEXTROSE 50% SYRINGE 12.5 GRAMS IV (09:46)
[2024-11-29 09:54] LABS: Lipase 484 U/L (23-300)
[2024-11-29 10:11] LABS: Glucose - Point of Care 130 mg/dl (70-99)
[2024-11-29 11:31] VITALS: BMI 32.6
[2024-11-29] MEDS: DILAUDID 1 MG IV ×2 (11:44→22:42)
--- NOTE | 2024-11-29 11:47 | CM ---
Patient seen at bedside
pain mgmt
No pcp - information previously given for residency program
PLAN: home, no needs anticipated
drove self here
[2024-11-29] MEDS: FERRLECIT 110 MG IV (13:08)
[2024-11-29 15:15] VITALS: BP 132/82
[2024-11-29] MEDS: NSS IV (15:54)
--- NOTE | 2024-11-29 16:31 | W.PN.GI.CBS2 ---
Addendum entered and electronically signed by Inessa Felder DO 11/29/24 18:13:
Patient seen and examined independently of DARIO. I agree with her note with my additions below
Sonya is a 33-year-old female who unfortunately unintentionally took an overdose of compounded semaglutide 2 weeks ago and presented to our ER on Thursday then again and was admitted for abdominal pain.
-- She does seem to be improving
-- Etiology more likely related to the medication itself and the side effects which have been compounded by the very high dose
-- Doubt pancreatitis in the setting of lipase under 900, normal CT scan
-- Patient's LFTs are normal, having trouble with hypoglycemia in the setting of this medication
-- Patient is in for MRI tonight due to the persistent epigastric and right upper quadrant pain that radiates into her back
--If unrevealing advance diet in the morning and hopeful discharge
Original Note:
Today's Communication / Plan
-
PLAN:etiology of abdominal pain and lipase elevation related to prolonged effects of Semaglutide vs pancreatitis related, constipation (though pain noted when pt was having diarrhea last week) vs other
US and CT as noted
for MRI to be done later tonight
some improvement in pain today
cont management of hypoglycemia per medical team
on clear diet
hopefully advance diet in am if MRI stable
pt wishing for discharge tomorrow
cont Miralax
OP follow up for anemia work up - likely chronic issue but symptomatic with shortness of breath -- agree with IV iron, 1 unit PRBC's given, no hx prior bariatric intervention in past. She will need EGD/colon if neg capsule likely outpatient as
would not be able to tolerate prep now-- if work up neg consider heme eval--
cont to trend hbg -- improving during admission
updated nursing staff
Assessment / Plan
-
Pt is a 33yo with hx melanoma with resection , WALESKA (no prior work up but admits to abnormal labs 4 years ago) , , with recent start of Semaglutide about 10 days prior to admission and took wrong dose of 70 units instead of 10 units with
noted nausea, vomiting and abdominal pain. She was in ER and returned with continued symptoms. On admission she is noted with continued iron deficiency anemia with hbg down to 6.6 with MCV in low 60's and iron studies c/w iron deficiency. She
has had normal LFT's but lipase to 753. Asked to see as she remains with continued epigastric, back and lower abdominal pain with difficulty with eating.
US Abdomen Complete/Upper 11/21/24 There is a calculus in the gallbladder but no evidence of cholecystitis. Liver normal no duct dilation. Pancreas normal.
CT s/p completed 11/25 with No significant acute abnormality identified in the abdomen or pelvis mild splenomegaly fatty liver, gallbladder without stones pancreas normal.
-abdominal pain
-recent start of Semaglutide with unintentional overdose
-nausea with prior vomiting
-diarrhea then constipation
-elevated lipase mild
-US with noted cholelithiasis
-Microcytic iron deficiency anemia with no prior GI work up
other med problems:
-melanoma with prior resection
-hx c-sections
PLAN:etiology of abdominal pain and lipase elevation related to prolonged effects of Semaglutide vs pancreatitis related, constipation (though pain noted when pt was having diarrhea last week) vs other
US and CT as noted
for MRI to be done later tonight
some improvement in pain today
cont management of hypoglycemia per medical team
on clear diet
hopefully advance diet in am if MRI stable
pt wishing for discharge tomorrow
cont Miralax
OP follow up for anemia work up - likely chronic issue but symptomatic with shortness of breath -- agree with IV iron, 1 unit PRBC's given, no hx prior bariatric intervention in past. She will need EGD/colon if neg capsule likely outpatient as
would not be able to tolerate prep now-- if work up neg consider heme eval--
cont to trend hbg -- improving during admission
updated nursing staff
Subjective
Subjective
Date of Service: November 29, 2024
some improvement in pain with only right sided pain now and still decreased appetite, still no stools, periods of hypoglycemia
Objective
Data Reviewed
Laboratory Data:
Laboratory Results
11/28/24 06:31
11/29/24 08:37
Laboratory Results
Total Bilirubin 1.0 mg/dl (0.2-1.3) 11/28/24 06:31
AST 16 U/L (14-36) 11/28/24 06:31
ALT 15 U/L (0-35) 11/28/24 06:31
Alkaline Phosphatase 48 U/L (38-126) 11/28/24 06:31
Lipase 484 U/L (23-300) H 11/29/24 08:37
Vital Signs and I&O:
Vital Signs
Temp Pulse Resp BP Pulse Ox
97.8 F 68 16 132/82 100
11/29/24 15:15 11/29/24 15:15 11/29/24 15:15 11/29/24 15:15 11/29/24 15:15
I&O
11/28/24 11/29/24 11/30/24
06:59 06:59 06:59
Intake Total 840 / 840 1480 / 1480
Balance 840 / 840 1480 / 1480
Physical Exam
Physical Exam
HEENT: Anicteric and Moist mucous membranes
Cardiology: Normal Sinus Rhythm
Pulmonary: Clear
GI: Soft, Non Distended and Tender (mild right sided )
Extremities: No Edema
Neuro: Non Focal
[2024-11-29 16:46] LABS: Glucose - Point of Care 55 mg/dl (70-99)
[2024-11-29] MEDS: SODIUM BICARBONATE 1150 MEQ IV (16:49)
--- NOTE | 2024-11-29 17:00 | PTCARENOTE ---
Glucose decreased, made aware, new order provided. informed that pt had a few sips of broth and a cup and half of water today.
[2024-11-29 17:06] LABS: Glucose - Point of Care 48 mg/dl (70-99)
[2024-11-29] MEDS: DEXTROSE 50% SYRINGE 25 GRAMS IV (17:11)
[2024-11-29 17:39] LABS: Glucose - Point of Care 79 mg/dl (70-99)
[2024-11-29] MEDS: SENOKOT 17.2 MG PO (22:41)
[2024-11-29 22:54] LABS: Glucose - Point of Care 71 mg/dl (70-99)
[2024-11-29 23:33] VITALS: BP 126/82
[2024-11-30 03:13] LABS: Glucose - Point of Care 69 mg/dl (70-99)
[2024-11-30] MEDS: SODIUM BICARBONATE 1150 MEQ IV (03:31)
[2024-11-30] MEDS: DILAUDID 1 MG IV ×5 (03:32→22:28)
[2024-11-30 03:41] LABS: Glucose - Point of Care 74 mg/dl (70-99)
[2024-11-30 06:00] VITALS: BMI 32.2
[2024-11-30 07:05] VITALS: BP 126/74
[2024-11-30 07:08] LABS: Blood Urea Nitrogen < 2 mg/dl (7-17); Calcium 9.3 mg/dl (8.4-10.2); Carbon Dioxide 24 mmol/L (22-30); Chloride 106 mmol/L (98-107); Estimated Creatinine Clearance > 125 ml/min; Glucose 89 mg/dl (70-99); Potassium 3.2 mmol/L (3.5-5.1); Sodium 140 mmol/L (135-145); eGFR > 60.00
[2024-11-30 08:05] LABS: Glucose - Point of Care 79 mg/dl (70-99)
--- NOTE | 2024-11-30 08:25 | W.PN.HOSP.TC ---
Today's Communication/Plan
-
If patient tolerates solid food she is cleared for discharge.
Assessment / Plan
Assessment / Plan
Patient seen and examined with BASIA Mcneil present at bedside:
Gen: NAD, AAOx3, NCAT
Eyes: EOMI, PERRLA, no scleral icterus.
Neck: supple.
CV: Remains RRR, +S1/S2, no m/r/g.
Resp: Continues to remain CTAB anteriorly, no rales, wheezes, or rhonchi.
Abd: +BS, soft, epigastric and RUQ TTP (very slightly improved from yesterday), ND
Skin: No rashes.
Neuro: CN 2-12 intact, non-focal.
Psych: Normal mood and affect.
CT A/P:
1. No significant acute abnormality identified in the abdomen or pelvis, as described above.
2. Mild splenomegaly.
MRI Abd: No MR evidence to suggest significant inflammatory changes of the pancreas/pancreatitis. No common bile duct or main pancreatic duct dilatation. No evidence of choledocholithiasis. Cholelithiasis. Mild splenomegaly.
Drug Induced chemical pancreatitis due to unintentional Overdose of Semaglutide:
-lipase improved
-s/p aggressive IVFs, stop IVFs today. Note, Non-AG met acidosis has resolved.
-IV dilaudid for pain control
-GI following
-likely advance diet to low fat/low residue (d/w'd GI)
Iron deficiency anemia anemia:
-drop in hemoglobin was dilutional. No evidence of bleeding at this time.
-cont IV Fe
-s/p 1U pRBCs
Other problems:
Hypoglycemia: follow accuchecks, s/p IV D50W
Hypokalemia: 40meq K
Obesity due to excess calories
FULL/SCDs
Anticipated Discharge: Within 24 hours
Subjective/Interval History
-
Date of Service: November 30, 2024
Objective Data
-
Labs:
Laboratory Results
11/30/24
06:24
Sodium 140
Potassium 3.2 L
Chloride 106
Carbon Dioxide 24
BUN < 2 L
Creatinine 0.5 L
Glucose 89
Calcium 9.3
Vital Signs:
Vital Signs
Temp Pulse Resp BP Pulse Ox
97.7 F 61 18 126/74 99
11/30/24 07:05 11/30/24 07:05 11/30/24 07:05 11/30/24 07:05 11/30/24 07:05
I&O
11/29/24 11/30/24 12/01/24
06:59 06:59 06:59
Intake Total 1480 / 1480 2570 / 2570
Balance 1480 / 1480 2570 / 2570
[2024-11-30] MEDS: MIRALAX 17 GRAMS PO (08:55)
[2024-11-30] MEDS: KLOR-CON 40 MEQ PO (08:55)
--- NOTE | 2024-11-30 10:58 | CM ---
Patient seen at bedside
Low fat diet ordered
PLAN: Home, no needs when stable
drove self
[2024-11-30 11:51] LABS: Glucose - Point of Care 90 mg/dl (70-99)
[2024-11-30] MEDS: FERRLECIT 110 MG IV (13:01)
[2024-11-30] MEDS: ZOFRAN 4 MG IV (13:01)
--- NOTE | 2024-11-30 13:23 | W.PN.GI.CBS2 ---
Addendum entered and electronically signed by Inessa eFlder DO 11/30/24 17:23:
Patient seen and examined independently of DARIO. I agree with her note with my additions below
Patient is improving and tolerated her lunch well with no significant issues and did have a bowel movement that was loose but no blood
Still with some nausea but improved
Underwent MRI with no abnormalities including normal pancreas, no cholecystitis. No ductal dilatation.Normal liver size, gallbladder shows mild to moderate distention and a small gallstone.
She does have mild splenomegaly at 13.7 cm
# Abdominal pain nausea vomiting -not consistent with pancreatitis. Likely secondary to accidental overdosing of semaglutide
--Appears to be improving
-- Started twice daily PPI tonight
# Microcytic anemia -with significant iron deficiency with a ferritin of 3.2
--Patient denies menorrhagia or any overt bleeding
--Stools are brown
--Check celiac panel, will need EGD and colonoscopy outpatient when she can tolerate the prep better
-- received IV iron
-- has mild splenomegaly on imaging
-- if GI work up is negative will send to hematology
Okay for discharge from GI perspective. We will get her a follow up.
Original Note:
Today's Communication / Plan
-
PLAN:etiology of abdominal pain and lipase elevation related to prolonged effects of Semaglutide vs less likely pancreatitis related with stable imaging including MRI done overnight and low lipase , constipation vs other
Etiology of WALESKA unclear -- cannot rule out GI etiology til work up completed vs stick welder vs heme issue
MRI review with patient
tolerating liquids-- still with pain with eating -- overall slow improvement no further vomiting and small stool today but still pain
glucose improved with eating
hoping for discharge tomorrow pending diet tolerance
if unable to discharge consider EGD -- likely unable to tolerate prep for colon
cont Miralax
I sent message to office to arrange GI followup for anemia work up
repeat hbg in AM prior to discharge
I left slip for hbg 2-3 weeks
also left contact for hematology for continued follow for anemia and need for iron infusion, and FOURDRINIER TENDER (last eval 12 years ago) to excluded FOURDRINIER TENDER source of anemia
Assessment / Plan
-
Pt is a 33yo with hx melanoma with resection , WALESKA (no prior work up but admits to abnormal labs 4 years ago) , , with recent start of Semaglutide about 10 days prior to admission and took wrong dose of 70 units instead of 10 units with
noted nausea, vomiting and abdominal pain. She was in ER and returned with continued symptoms. On admission she is noted with continued iron deficiency anemia with hbg down to 6.6 with MCV in low 60's and iron studies c/w iron deficiency. She
has had normal LFT's but lipase to 753. Asked to see as she remains with continued epigastric, back and lower abdominal pain with difficulty with eating.
US Abdomen Complete/Upper 11/21/24 There is a calculus in the gallbladder but no evidence of cholecystitis. Liver normal no duct dilation. Pancreas normal.
CT s/p completed 11/25 with No significant acute abnormality identified in the abdomen or pelvis mild splenomegaly fatty liver, gallbladder without stones pancreas normal.
11/30/24 MRI abdfomen
No MR evidence to suggest significant inflammatory changes of the pancreas/pancreatitis. No common bile duct or main pancreatic duct dilatation. No evidence of choledocholithiasis. Cholelithiasis. Mild splenomegaly.
-abdominal pain
-recent start of Semaglutide with unintentional overdose
-nausea with prior vomiting
-diarrhea then constipation
-elevated lipase mild
-US with noted cholelithiasis
-Microcytic iron deficiency anemia with no prior GI work up
-hypoglycemia
other med problems:
-melanoma with prior resection
-hx c-sections
PLAN:etiology of abdominal pain and lipase elevation related to prolonged effects of Semaglutide vs less likely pancreatitis related with stable imaging including MRI done overnight and low lipase , constipation vs other
Etiology of WALESKA unclear -- cannot rule out GI etiology til work up completed vs stick welder vs heme issue
MRI review with patient
tolerating liquids-- still with pain with eating -- overall slow improvement no further vomiting and small stool today but still pain
glucose improved with eating
hoping for discharge tomorrow pending diet tolerance
if unable to discharge consider EGD -- likely unable to tolerate prep for colon
cont Miralax
I sent message to office to arrange GI followup for anemia work up
repeat hbg in AM prior to discharge
I left slip for hbg 2-3 weeks
also left contact for hematology for continued follow for anemia and need for iron infusion, and FOURDRINIER TENDER (last eval 12 years ago) to excluded FOURDRINIER TENDER source of anemia
Subjective
Subjective
Date of Service: November 30, 2024
still with some pain with eating but not tolerating liquids, no vomiting, small stool today -- aiming for discharge tomorrow
Objective
Data Reviewed
Laboratory Data:
Laboratory Results
11/28/24 06:31
11/30/24 06:24
Laboratory Results
Total Bilirubin 1.0 mg/dl (0.2-1.3) 11/28/24 06:31
AST 16 U/L (14-36) 11/28/24 06:31
ALT 15 U/L (0-35) 11/28/24 06:31
Alkaline Phosphatase 48 U/L (38-126) 11/28/24 06:31
Lipase 484 U/L (23-300) H 11/29/24 08:37
Vital Signs and I&O:
Vital Signs
Temp Pulse Resp BP Pulse Ox
97.7 F 61 18 126/74 99
11/30/24 07:05 11/30/24 07:05 11/30/24 07:05 11/30/24 07:05 11/30/24 07:05
I&O
11/29/24 11/30/24 12/01/24
06:59 06:59 06:59
Intake Total 1480 / 1480 2570 / 2570
Balance 1480 / 1480 2570 / 2570
Physical Exam
Physical Exam
HEENT: Anicteric and Moist mucous membranes
Cardiology: Normal Sinus Rhythm
Pulmonary: Clear
GI: Soft, Non Distended and Tender (diffuse abdominal pain)
Extremities: No Edema
Neuro: Non Focal
[2024-11-30 15:05] VITALS: BP 103/77
[2024-11-30 17:21] LABS: Glucose - Point of Care 92 mg/dl (70-99)
[2024-11-30] MEDS: SENOKOT PO (21:09)
[2024-11-30 21:22] LABS: Glucose - Point of Care 129 mg/dl (70-99)
[2024-11-30] MEDS: PROTONIX 40 MG PO (22:26)
[2024-11-30 22:57] VITALS: BP 106/51
[2024-12-01 06:00] VITALS: BMI 32.0
[2024-12-01] MEDS: ZOFRAN 4 MG IV (06:25)
[2024-12-01] MEDS: DILAUDID 0.25 MG IV (06:26)
[2024-12-01 07:22] LABS: Glucose - Point of Care 105 mg/dl (70-99)
[2024-12-01 07:56] LABS: Hemoglobin 9.3 g/dL (12.0-16.0); Mean Corp Hgb Conc. 29.1 g/dL (33.0-37.0); Mean Corpuscular Hgb 18.4 pg (27.0-31.0); Mean Corpuscular Volume 63.2 fL (81.0-99.0); Platelet Count 275 10^3/uL (130-400); Red Blood Cell Count 5.06 10^6/uL (4.20-5.40); Red Cell Dist. Width 26.4 % (11.5-14.5); White Blood Cell Count 4.4 10^3/uL (4.8-10.8)
[2024-12-01 08:00] VITALS: BP 142/82
[2024-12-01 08:19] LABS: IgA 247 mg/dl (70-400)
[2024-12-01] MEDS: MIRALAX PO (09:10)
[2024-12-01] MEDS: PROTONIX 40 MG PO (09:10)
--- NOTE | 2024-12-01 09:11 | PTCARENOTE ---
IV site removed this AM. Pt requested oral pain and oral nausea medication. made aware.
--- NOTE | 2024-12-01 09:16 | W.PN.HOSP.TC ---
Today's Communication/Plan
-
d/c
Assessment / Plan
Assessment / Plan
Patient seen and examined with BASIA Fishman present at bedside:
Gen: NAD, AAOx3, NCAT
Eyes: EOMI, PERRLA, no scleral icterus.
Neck: supple.
CV: Remains RRR, +S1/S2, no m/r/g.
Resp: CTAB anteriorly, no rales, wheezes, or rhonchi.
Abd: +BS, soft, NT, ND
Skin: No rashes.
Neuro: remains CN 2-12 intact, non-focal.
Psych: Normal mood and affect.
Lab Results
11/29/24 11/29/24 11/29/24
08:37 09:25 09:43
WBC
RBC
Hgb
Hct
MCV
MCH
MCHC
RDW
Plt Count
MPV
Sodium
Potassium 4.0
Chloride
Carbon Dioxide
BUN
Creatinine
Estimated Creat Clear
eGFR
Glucose
Calcium
Lipase 484 H
Immunoglobulin A
POC Glucose 49 L* 56 L
11/29/24 11/29/24 11/29/24
10:10 16:45 17:04
WBC
RBC
Hgb
Hct
MCV
MCH
MCHC
RDW
Plt Count
MPV
Sodium
Potassium
Chloride
Carbon Dioxide
BUN
Creatinine
Estimated Creat Clear
eGFR
Glucose
Calcium
Lipase
Immunoglobulin A
POC Glucose 130 H 55 L* 48 L*
11/29/24 11/29/24 11/30/24
17:38 22:52 03:10
WBC
RBC
Hgb
Hct
MCV
MCH
MCHC
RDW
Plt Count
MPV
Sodium
Potassium
Chloride
Carbon Dioxide
BUN
Creatinine
Estimated Creat Clear
eGFR
Glucose
Calcium
Lipase
Immunoglobulin A
POC Glucose 79 71 69 L
11/30/24 11/30/24 11/30/24
03:39 06:24 08:04
WBC
RBC
Hgb
Hct
MCV
MCH
MCHC
RDW
Plt Count
MPV
Sodium 140
Potassium 3.2 L
Chloride 106
Carbon Dioxide 24
BUN < 2 L
Creatinine 0.5 L
Estimated Creat Clear > 125
eGFR > 60.00
Glucose 89
Calcium 9.3
Lipase
Immunoglobulin A
POC Glucose 74 79
11/30/24 11/30/24 11/30/24
11:49 17:20 21:21
WBC
RBC
Hgb
Hct
MCV
MCH
MCHC
RDW
Plt Count
MPV
Sodium
Potassium
Chloride
Carbon Dioxide
BUN
Creatinine
Estimated Creat Clear
eGFR
Glucose
Calcium
Lipase
Immunoglobulin A
POC Glucose 90 92 129 H
12/01/24 12/01/24
06:42 07:21
WBC 4.4 L
RBC 5.06
Hgb 9.3 L
Hct 32.0 L
MCV 63.2 L
MCH 18.4 L
MCHC 29.1 L
RDW 26.4 H
Plt Count 275
MPV Not Reportable
Sodium
Potassium
Chloride
Carbon Dioxide
BUN
Creatinine
Estimated Creat Clear
eGFR
Glucose
Calcium
Lipase
Immunoglobulin A 247
POC Glucose [address]/P:
1. No significant acute abnormality identified in the abdomen or pelvis, as described above.
2. Mild splenomegaly.
MRI Abd: No MR evidence to suggest significant inflammatory changes of the pancreas/pancreatitis. No common bile duct or main pancreatic duct dilatation. No evidence of choledocholithiasis. Cholelithiasis. Mild splenomegaly.
Drug Induced chemical pancreatitis due to unintentional Overdose of Semaglutide:
-lipase improved
-s/p aggressive IVFs, stopped 11/30/24. Note, Non-AG met acidosis has resolved.
-was on IV dilaudid for pain control, transition to Percocet/Ultram/Tylenol
-GI following
-diet to advanced to low fat/low residue on 11/30/24
Iron deficiency anemia anemia:
-drop in hemoglobin was dilutional. No evidence of bleeding at this time.
-s/p IV Fe
-s/p 1U pRBCs
Other problems:
Hypoglycemia: follow accuchecks, s/p IV D50W
Hypokalemia: AM K pending
Obesity due to excess calories
FULL/SCDs
Total time spent on d/c = 31 min. This included today's physical exam, progress note, review of laboratory and diagnostic data, preparation of discharge documents and prescriptions, and discussions about the pt's hospital course and discharge plan
with the patient and other director medical science involved in the patient's care.
Anticipated Discharge: Today
Subjective/Interval History
-
Date of Service: December 01, 2024
Pt tolerating diet. Reports abdominal pain improving.
Objective Data
-
Labs:
Laboratory Results
12/01/24
06:42
WBC 4.4 L
Hgb 9.3 L
Hct 32.0 L
Plt Count 275
Vital Signs:
Vital Signs
Temp Pulse Resp BP Pulse Ox
98.1 F 80 18 142/82 98
12/01/24 08:00 12/01/24 08:00 12/01/24 08:00 12/01/24 08:00 12/01/24 08:00
I&O
11/30/24 12/01/24 12/02/24
06:59 06:59 06:59
Intake Total 2570 / 2570 2280 / 2280
Balance 2570 / 2570 2280 / 2280
[2024-12-01] MEDS: PERCOCET 5/325 1 TABLET PO (09:36)
[2024-12-01] MEDS: ZOFRAN ODT (ORALLY DISINTEGRATING) 4 MG PO (09:36)
[2024-12-01 10:01] LABS: Potassium 3.4 mmol/L (3.5-5.1)
[2024-12-01] MEDS: KCL 40 MEQ PO (11:20)
[2024-12-01] MEDS: ULTRAM 50 MG PO (11:23)
[2024-12-01 11:45] VITALS: BP 130/58
[2024-12-01 12:01] LABS: Glucose - Point of Care 94 mg/dl (70-99)
--- NOTE | 2024-12-01 12:36 | CM ---
Home today, no needs.
Plan; Home no needs.
--- NOTE | 2024-12-01 13:26 | W.DCSUMMARY ---
Discharge Summary
Discharge Data
Date of Admission: 11/25/24
Date of Discharge: 12/01/24
-
Pending Results: No
Hospital Course
Primary diagnoses:
Drug Induced chemical pancreatitis due to unintentional Overdose of Semaglutide
Iron deficiency anemia
Secondary diagnoses:
Non-anion gap metabolic acidosis
Hypoglycemia
Hypokalemia
Obesity due to excess calories
Consultants:
Gastroenterology
Imaging:
CT A/P:
1. No significant acute abnormality identified in the abdomen or pelvis, as described above.
2. Mild splenomegaly.
MRI Abd: No MR evidence to suggest significant inflammatory changes of the pancreas/pancreatitis. No common bile duct or main pancreatic duct dilatation. No evidence of choledocholithiasis. Cholelithiasis. Mild splenomegaly.
Hospital course: 34-year-old female presented with chief complaints of nausea, vomiting, abdominal pain as outlined in H&P done on admission. The patient had accidentally overdosed on her semaglutide about 10 days prior to admission. Her lipase on
admission was was 375, it peaked at 753, and was 44 at the time of discharge. Imaging above. She received aggressive IVFs which were stopped 11/30/24. She was initially n.p.o. and her diet was slowly advanced to a low-fat diet which she tolerated
prior to discharge. She did have a non-anion gap metabolic acidosis that resolved. Patient was found to have iron deficiency anemia with a dilutional drop in hemoglobin. She received IV iron and 1 unit of packed red blood cells. The patient was
discharged in medically stable condition.
Discharge Plan
-
Patient Disposition: Home (Routine Discharge)
Discharge Diagnosis/Procedures: Drug Induced chemical pancreatitis due to unintentional Overdose of Semaglutide
Diet: Other diet
Additional Diets: gastroparesis diet with low fat, small frequent meals, chew food well. keep hydrated. Avoid caffinated beverages
Activity: As tolerated
Driving Restrictions: As prior to admission
Bathing Restrictions: None
Blood Work: repeat hbg 2-3 weeks see slip-- check with insurance for lab in network
Others Tests: avoid all NSAIDS, --Aleve Motrin, advil ETC.
Referrals:
Jose Angel Matos DO [Active] - (follow up with hematology for continued follow up for anemia/ iron infusion and work up for cause)
NONE,* [Family Provider] - in less than 1 week
Terrie Pitts DO [Active] - (return for hx anemia to discuss GI testing for work up with EGD/colon if recurrent pain, fever return to ER. If mild pain call to review for repeat labs. )
Cherie Adorno MD [Active] - (follow up with gynocology to exclude CLAY CARMAN source for anemia )
Prescriptions:
New
tramadol 50 mg Tablet
50 mg PO Q6HPRN PRN (Reason: moderate pain) Qty: 7 0RF
Discharge Orders:
Discharge Patient (As Directed); Ordered 12/01/24
Ordered By: Ector Cuba
Discharge Date and Time
Discharge Date/Time: 12/01/24 12:59
Print Language: ESTONIAN
[2024-12-02 16:33] LABS: tTG IgA Antibody <1.02 FLU (0.00-4.99)
[2024-12-03 01:44] LABS: Endomysial IgA Antibody Titer <1:10 (<1:10)
== END 2024-12-01 12:59 | disposition home or self-care (01) | DRG 917 ==
LOC: 3 WEST ACU 22:48
PROVIDERS: Clinical Nurse Specialist Family Health; Emergency Medicine; Internal Medicine; Nurse Practitioner Adult Health; ADMITTING PHYSICIAN Hospitalist; ATTENDING PHYSICIAN Internal Medicine; CONSULT PHYSICIAN Internal Medicine; EMERGENCY PHYSICIAN Emergency Medicine
PROC: 30233N1 Transfusion of Nonautologous Red Blood Cells into Peripheral Vein, Percutaneous Approach (ICD-10-PCS; 2024-11-26)
DX: T50.991A Poisoning by other drugs, medicaments and biological substances, accidental (unintentional), initial encounter (principal); K85.30 Drug induced acute pancreatitis without necrosis or infection; E87.20 Acidosis, unspecified; K80.20 Calculus of gallbladder without cholecystitis without obstruction; D50.9 Iron deficiency anemia, unspecified; R74.8 Abnormal levels of other serum enzymes; E66.09 Other obesity due to excess calories; D56.3 Thalassemia minor; E16.2 Hypoglycemia, unspecified; K59.00 Constipation, unspecified; E87.6 Hypokalemia; Y92.9 Unspecified place or not applicable; Z79.85 Long-term (current) use of injectable non-insulin antidiabetic drugs; Z85.820 Personal history of malignant melanoma of skin; Z68.32 Body mass index [BMI] 32.0-32.9, adult
CPT/HCPCS: 74177; 74183; 80048; 80053; 82728; 82746; 82784; 82962; 83516; 83540; 83550; 83690; 83735; 84132; 84703; 85025; 85027; 86231; 86850; 86900; 86901; 86920; 96361; 96374; 96375; 96376; 99285; A9575; J2916; P9016; Q9967

== ENCOUNTER 2024-12-19 06:31 | Day surgery (SDC) | payer OTHER, SELFPAY | END 2024-12-19 15:25 | disposition home or self-care (01) | LOC: GI 06:31 | PROVIDERS: ATTENDING PHYSICIAN Internal Medicine | DX: D50.9 Iron deficiency anemia, unspecified (principal); K64.9 Unspecified hemorrhoids; K44.9 Diaphragmatic hernia without obstruction or gangrene; K29.50 Unspecified chronic gastritis without bleeding | CPT/HCPCS: 43239; 45378; 88305; 88342 ==